=== PATIENT | female | born 1960 | race Caucasian/White ===

== ENCOUNTER 2018-04-04 14:10 | Outpatient (CLI) ==
[2018-04-04 14:35] VITALS: BMI 19.5
== END 2018-04-04 14:11 | disposition short-term general hospital (02) ==
LOC: AMBL 14:10
PROVIDERS: ATTEND Family Medicine
DX: S91.311A Laceration without foreign body, right foot, initial encounter (principal); R60.0 Localized edema; W20.8XXA Other cause of strike by thrown, projected or falling object, initial encounter; S40.022A Contusion of left upper arm, initial encounter; S40.021A Contusion of right upper arm, initial encounter; S80.12XA Contusion of left lower leg, initial encounter; S80.11XA Contusion of right lower leg, initial encounter; S20.219A Contusion of unspecified front wall of thorax, initial encounter

== ENCOUNTER 2018-04-04 14:27 | Emergency (ER) ==
[2018-04-04] MEDS ORDERED: NORCO 5-325 PO STA (14:30)
[2018-04-04] MEDS ORDERED: LIDOCAINE HCL 1% SDV SUBCUT STA (14:30)
[2018-04-04 14:35] VITALS: BP 134/91; TEMP 97; BMI 19.5
--- NOTE | 2018-04-04 14:53 | ED.PDOC ---
General ED Provider: Dr. KALEIGH PERLA-ER Chief Complaint: Laceration Stated Complaint: i cut the top of my right foot wtih a scooter Time Seen by Physician: 14:35 Mode of Arrival: Ambulance Information Source: Patient Exam Limitations: No limitations Nursing and Triage Documentation Reviewed and Agree: Yes Reviewed sepsis parameters & appropriate labs ordered?: Yes System Inflammatory Response Syndrome: Not Applicable Sepsis Protocol: For patient's 13 years and over: Temp is 96.8 and below OR 101 and greater Pulse >90 BPM Resp >20/minute Acutely Altered Mental Status Are patient's symptoms suggestive of a new infection, such as: -Pneumonia -Skin, Soft Tissue -Endocarditis -UTI -Bone, Joint Infection -Implantable Device -Acute Abdominal Infection -Wound Infection -Meningitis -Blood Stream Catheter Infection -Unknown Skin Complaint Exam - Laceration/Lower Ext. Complaint/Exam Location of Injury: Foot Mechanism of Injury: Laceration Onset/Duration: one hour Symptoms Are: Still present Initial Severity: Mild Current Severity: Mild Aggravating: Movement Alleviating: Compression Associated Signs and Symptoms: Denies: Fever, Chills, Erythema, Numbness, Tingling Differential Diagnoses: Laceration Review of Systems - Review Of Systems Constitutional: Reports: No symptoms Eyes: Reports: No symptoms Ears, Nose, Mouth, Throat: Reports: No symptoms Respiratory: Reports: No symptoms Cardiac: Reports: No symptoms GI: Reports: No symptoms : Reports: No symptoms Musculoskeletal: Reports: No symptoms Skin: Reports: No symptoms Neurological: Reports: No symptoms Endocrine: Reports: No symptoms Hematologic/Lymphatic: Reports: No symptoms All Other Systems: Reviewed and Negative Past Medical History - Past Medical History Previously Healthy: Yes Endocrine: Reports: Unknown Cardiovascular: Reports: Unknown Respiratory: Reports: Unknown Hematological: Reports: Unknown Gastrointestinal: Reports: Unknown Genitourinary: Reports: Unknown Neuro/Psych: Reports: Unknown Musculoskeletal: Reports: Unknown Cancer: Reports: Unknown Last Menstrual Period: N/A - Surgical History General Surgical History: Reports: Unknown - Family History Family History: Reports: Unknown - Social History Smoking Status: Never smoker Hx Substance Use: No Alcohol Screening: Occasionally - Immunizations Tetanus Shot up to Date: Yes (1 YEAR AGO) Physical Exam - Physical Exam Appearance: Well-appearing, No pain distress, Well-nourished Pain Distress: Mild Eyes: GERONIMO, EOMI, Conjunctiva clear ENT: Ears normal, Nose normal, Oropharynx normal Neck: Supple Respiratory: Airway patent, Breath sounds clear, Breath sounds equal, Respirations nonlabored Cardiovascular: RRR, Pulses normal, No rub, No murmur GI/: Soft, Nontender, No masses, Bowel sounds normal, No Organomegaly Musculoskeletal: Normal strength Skin: Warm, Dry, Normal color Neurological: Sensation intact Psychiatric: Affect appropriate, Mood appropriate Interpretation - Radiology Interpretation Radiology Interpretation By: ED Physician Radiology Results: Negative Procedures - Laceration/Wound Repair No standard instances Wound Description: Linear Wound Length (cm): 2.0cm anterior right foot Wound Explored: Clean Wound Irrigated: Yes Wound Prep: Hibiclens Anesthesia: Lidocaine Wound Repaired With: Sutures Suture Size and Type: 4.0 prolene Number of Sutures: 3 Layer Closure?: No Sterile Dressing Applied?: Yes Splint Applied?: No Sling Applied?: No Critical Care Note - Critical Care Note Total Time (mins): 0 Course - Course Orders, Labs, Meds: Orders Category Date Time Status Hydrocodone Bit/Acetaminophen [[place] 5-325] MEDS 04/04/18 14:30 Discontinued 1 tab PO ONCE STA Lidocaine HCl/Pf [Lidocaine HCl 1% Sdv] MEDS 04/04/18 14:30 Discontinued 5 ml SUBCUT ONCE STA FOOT, RIGHT 3 VIEWS Stat RADS 04/04/18 14:28 Taken Medications Discontinued Medications Generic Name Dose Route Start Last Admin Trade Name Freq PRN Reason Stop Dose Admin Hydrocodone Bitart/Acetaminophen 1 tab 04/04/18 14:30 04/04/18 14:39 [place] 5-325 PO 04/04/18 14:31 1 tab ONCE STA Administration Lidocaine HCl 5 ml 04/04/18 14:30 Lidocaine Hcl 1% Sdv SUBCUT 04/04/18 14:31 ONCE STA Vital Signs: Temp Pulse Resp BP Pulse Ox 04/04/18 14:28 97.0 F L 93 H 20 134/91 H 100 Departure - Departure Time of Disposition: 14:54 Disposition: HOME SELF-CARE Discharge Problem: Laceration - injury Instructions: Laceration (ED), Care For Your Stitches (ED) Condition: Good Pt referred to PMD for follow-up: Yes IPMP verified?: No Additional Instructions: routine wound care--sutures out in 7 days--return if any signs of infection Home Medications: Ambulatory Orders Fluoxetine HCl [Prozac] 10 mg PO DAILY 04/04/18 Olanzapine [Zyprexa] 2.5 mg PO DAILY 04/04/18 Disposition Discussed With: Patient
--- NOTE | 2018-04-04 14:57 | DI ---
EXAM: RIGHT FOOT, 3 VIEWS HISTORY: Foot injury, pain FINDINGS: Bone and joint structures appear normal. No displaced fracture or joint dislocation is s een. There is no joint effusion. Soft tissues within normal limits. IMPRESSION: Within normal limits.
== END 2018-04-04 15:20 | disposition home or self-care (01) ==
LOC: ED 14:27
DX: S91.311A Laceration without foreign body, right foot, initial encounter (principal); W45.8XXA Other foreign body or object entering through skin, initial encounter
CPT/HCPCS: 99283

== ENCOUNTER 2018-04-14 19:25 | Outpatient (CLI) | END 2018-04-14 19:42 | disposition short-term general hospital (02) | LOC: AMBL 19:25 | PROVIDERS: ATTEND Internal Medicine Geriatric Medicine | DX: R53.1 Weakness (principal); R51 Headache; R11.2 Nausea with vomiting, unspecified; R19.7 Diarrhea, unspecified; I10 Essential (primary) hypertension; F99 Mental disorder, not otherwise specified; K21.9 Gastro-esophageal reflux disease without esophagitis ==